=== PATIENT | male | born 1955 | race Caucasian/White ===

== ENCOUNTER → 2018-08-28 | Outpatient (CLI) | payer OTHER ==
[~2018-08-28] MED LIST: ASPI-1471 PO; FINA5TAB67 PO; MULT-865 PO; SILD100T59 PO; TEST200K; TEST200V IM
--- NOTE | 2018-08-28 09:36 | RADIOLOGY IMAGING REPORT ---
FACILITY: [facility] PATIENT NAME: Shane Ieyr : 1955 MR: [id number] V: [id number] EXAM DATE: [id number] ORDERING PHYSICIAN: RANJITH MANN TECHNOLOGIST: Location: [facility] [place] Patient: Shane Iyer : 1955 Visit/Account:[id number] Date of Sevice: 08/28/2018 Study: Frontal and lateral views of the chest Indication: Shortness of breath Comparison study: None Findings: PA and lateral views of the chest demonstrate no evidence of acute infiltrate. There is h yperexpansion of the lung [place]. There is no evidence of pleural effusion. There is no evidence of pneumothorax. The mediastinal, cardiac, and diaphragmatic contours are unremarkable. The visualized bony structures are unremarkable. IMPRESSION: Hyperexpansion of the lung [place], otherwise unremarkable exam. Report Dictated By: Wilmer Franco at 08/28/2018 9:31 AM Report E-Signed By: Wilmer Franco at 08/28/2018 9:32 AM WSN:[id number]
--- NOTE | 2018-08-28 15:26 | EKG ---
FACILITY: [facility] - [place] PATIENT NAME: ABDIEL LOPEZ : [id number] MR: [id number] V: [id number] EXAM DATE: ORDERING PHYSICIAN: RANJITH MANN TECHNOLOGIST: LEANDRA Test Reason : CHEST PAIN Blood Pressure : / mmHG Vent. Rate : 055 BPM Atrial Rate : 055 BPM P-R Int : 186 ms QRS Dur : 102 ms QT Int : 418 ms P-R-T Axes : 076 077 064 degrees QTc Int : 399 ms Sinus bradycardia Otherwise normal ECG No previous ECGs available Confirmed by ALYSSA LEAL ([id number]) on 08/28/2018 4:26:54 PM Referred By: RANJITH MANN Confirmed By:ALYSSA LEAL
== END ==
LOC: RAD 08:46
PROVIDERS: ATTEND Nurse Practitioner Primary Care
DX: R00.1 Bradycardia, unspecified (principal); R06.02 Shortness of breath; R07.9 Chest pain, unspecified
CPT/HCPCS: 36415; 71046; 84484; 85379; 93306

== ENCOUNTER → 2018-10-02 | Outpatient (CLI) | payer OTHER ==
[~2018-10-02] MED LIST changes: +TADA5TAB7 PO
== END ==
LOC: LAB 14:33
PROVIDERS: ATTEND Urology
DX: R97.20 Elevated prostate specific antigen [PSA] (principal)
CPT/HCPCS: 84153; 84154

== ENCOUNTER → 2018-10-02 | Outpatient (CLI) | payer OTHER ==
--- NOTE | 2018-10-02 17:23 | RADIOLOGY IMAGING REPORT ---
FACILITY: [facility] PATIENT NAME: Shane Iyer : 1955 MR: [id number] V: [id number] EXAM DATE: ORDERING PHYSICIAN: ALYSSA LEAL TECHNOLOGIST: Location: [facility] [place] Patient: Shane Iyer : 1955 Visit/Account:[id number] Date of Sevice: 10/02/2018 CAROTID HISTORY: hyperlipidea COMPARISON: None. FINDINGS: Grayscale, duplex and color Doppler interrogation of the extracranial carotid and vertebral arteries was performed bilateral. On the right, peak systolic velocities within the common and internal carotid arteries are 113 and 92 cm/sec respectively. No significant plaque identified. Antegrade flow within the common, internal and external carotid arteries as well as vertebral artery. ICA/CCA ratio 0.8. On the left, peak systolic velocities within the common and internal carotid arteries are 107 and 107 cm/sec respectively. No significant plaque identified. Antegrade flow within the common, internal and external carotid arteries as well as vertebral artery. ICA/CCA ratio 1.0. IMPRESSION: No hemodynamically significant lesions identified Velocity criteria are extrapolated from diameter data as defined by the Society of Radiologists in Ul trasound Consensus Conference Radiology 2003; 229;340-346 Report Dictated By: Vanessa Patricio MD at 10/02/2018 5:18 PM Report E-Signed By: Vanessa Patricio MD at 10/02/2018 5:19 PM WSN:[id number]
== END ==
LOC: US 07:58
PROVIDERS: ATTEND Internal Medicine
DX: E78.49 Other hyperlipidemia (principal)
CPT/HCPCS: 93880